=== PATIENT | male | born 1995 | race African-American/Black ===

== ENCOUNTER 2018-02-16 19:41 | Emergency (ER) | payer MEDICAID, OTHER ==
[~2018-02-16] VITALS: Ht 170.2 cm; Wt 54.4 kg
[~2018-02-16 19:41] MED LIST: IBUPROFEN 600MG TABLET ONE
[2018-02-16] MEDS ORDERED: IBUPROFEN 600MG TABLET PO ONE (21:00)
[2018-02-17 01:12] VITALS: BP 111/67
== END 2018-02-17 02:35 | disposition home or self-care (01) ==
LOC: ER 19:41
DX: S03.2XXA Dislocation of tooth, initial encounter (principal); S02.401A Maxillary fracture, unspecified side, initial encounter for closed fracture; W10.8XXA Fall (on) (from) other stairs and steps, initial encounter; Y93.89 Activity, other specified; Y92.89 Other specified places as the place of occurrence of the external cause; R03.0 Elevated blood-pressure reading, without diagnosis of hypertension; F12.90 Cannabis use, unspecified, uncomplicated; J32.0 Chronic maxillary sinusitis
CPT/HCPCS: 70486; 99284; Z7610